=== PATIENT | female | born 1930 | race Caucasian/White ===

== ENCOUNTER 2021-10-22 13:46 | Observation (INO) | payer OTHER ==
[~2021-10-22] VITALS: Ht 162.6 cm; Wt 64.0 kg
[2021-10-22] MEDS ORDERED: HALOPERIDOL LACTATE 5 MG/ML VIAL IM ONE (14:15)
--- NOTE | 2021-10-22 14:15 | NUR ---
Placed in room 05 . Placed on traffic monitor specialist, blood pressure machine and pulse oximeter. To gown for exam. Side rails up.
[2021-10-22 14:18] VITALS: BP_SYST 134
--- NOTE | 2021-10-22 14:40 | NUR ---
Dr Hernandez evaluating patient at bedside
--- NOTE | 2021-10-22 14:45 | NUR ---
PT ARRIVED FROM HOME BY AMBULANCE C/O DEHYDRATION, ALTERED MENTAL STATUS, AND SCREAMING. PER FAMILY THE PATIENT STARTED TO BECOME MORE ALTERED AFTER STARTING TRAMADOL AT HOME. PER FAMILY SHE HAS HAD POOR PO INTAKE X2D. PT CURRENTLY ON HOSPICE AND DNR. HOSPICE WAS SUPPOSED TO SEE PATIENT AT HOME FOR IVF BUT FAMILY REFUSED AND WANTED PT TO COME TO HOSPITAL. PT INCONTINENT B/B.
[2021-10-22] MEDS ORDERED: NACL 0.9% 1,000 ML IV ONE (15:15)
--- NOTE | 2021-10-22 15:17 | NUR ---
Pt taken to CT via rmelony.
[2021-10-22 15:22] LABS: BASOPHILS % (AUTO) 0.3 % (0.0-2.0); EOSINOPHILS % (AUTO) 0.4 % (0.0-4.0); HEMOGLOBIN 15.4 g/dL (12.0-16.0); LYMPHOCYTES # (AUTO) 1.7 K/uL (1.0-5.5); LYMPHOCYTES % (AUTO) 20.2 % (20.5-51.5); MEAN CORPUSCULAR HEMOGLOBIN 31 pg (27-31); MEAN CORPUSCULAR HGB CONC 34 % (32-36); MEAN CORPUSCULAR VOLUME 91 fL (79.0-98.0); MONOCYTES # (AUTO) 0.8 K/uL (0.0-1.0); MONOCYTES % (AUTO) 9.1 % (1.7-9.3); NEUTROPHILS # (AUTO) 5.9 K/uL (1.8-7.7); PLATELET COUNT (AUTO) 199 K/uL (130-430); RED BLOOD CELL COUNT(AUTO) 5.03 MIL/uL (4.2-6.2); WHITE BLOOD COUNT (AUTO) 8.4 K/uL (4.8-10.8)
[2021-10-22 15:29] LABS: ANION GAP 14 (5-15); CALCIUM 9.3 mg/dL (8.4-11.0); CHLORIDE 98 mmol/L (98-107); CREATININE 1.36 mg/dL (0.55-1.30); GLUCOSE 140 mg/dL (70-99); POTASSIUM 3.4 mmol/L (3.5-5.1); SODIUM SERUM 138 mmol/L (136-145); UREA NITROGEN, BLOOD 16 mg/dL (8-21)
--- NOTE | 2021-10-22 15:30 | NUR ---
# 20 gauge angiocath placed to RIGHT AC. Use of asceptic technique. Opsite placed over site. Blood return noted. Blood for lab drawn from site. Flushed with 10 cc of normal saline. No evidence of infiltration noted. Patient tolerated well.
--- NOTE | 2021-10-22 15:33 | NUR ---
COVID SPECIMEN SENT TO LAB.
[2021-10-22 15:38] LABS: ALANINE AMINOTRANSFERASE 11 U/L (12-78); ALBUMIN 3.6 g/dL (3.4-4.8); ASPARTATE AMINOTRANSFERASE 19 U/L (10-37); TOTAL BILIRUBIN 0.9 mg/dL (0.0-1.0)
[2021-10-22 15:42] LABS: ALCOHOL, BLOOD < 3 mg/dL (<10)
--- NOTE | 2021-10-22 16:20 | NUR ---
Spoke to Khushi from [facility]. Verified pt was DNR. was only sent to ER for IV hydration only. when ready to come back hospice nurse will be at the home to help family. # [phone]
[2021-10-22] MEDS ORDERED: QUET50TA PO (17:45)
[2021-10-22] MEDS ORDERED: LORA-258 PO (17:47)
[2021-10-22] MEDS ORDERED: TRAM50TA2 PO (17:48)
[2021-10-22] MEDS ORDERED: SENN8.6T19 PO (17:49)
[2021-10-22 18:19] LABS: BILIRUBIN,URINE NEGATIVE (NEGATIVE); BLOOD, URINE 2+ (NEGATIVE); CLARITY/URINE CLEAR (CLEAR); COLOR,URINE YELLOW (YELLOW); GLUCOSE,URINE NEGATIVE (NEGATIVE); KETONES,URINE 1+ (NEGATIVE); LEUKOCYTE ESTERASE ,URINE NEGATIVE (NEGATIVE); NITRITE, URINE NEGATIVE (NEGATIVE); PROTEIN URINE 1+ (NEGATIVE); UROBILINOGEN,URINE 0.2 (0.2-1.0)
[2021-10-22 18:48] LABS: BARBITURATE, URINE NEGATIVE (NEG <=200); BENZODIAZEPINE, URINE POSITIVE (NEG <=150); CANNABINOID, URINE NEGATIVE (NEG <=50); COCAINE, URINE NEGATIVE (NEG <=150); METHAMPHETAMINES SCREEN,URINE NEGATIVE (NEG <=500); OPIATE, URINE NEGATIVE (NEG <=100); PHENCYCLIDINE SCREEN,URINE NEGATIVE (NEG <=25); UR TRICYCLIC ANTIDEPRESSANTS NEGATIVE (NEG <=300); URINE AMPHETAMINE NEGATIVE (NEG <=500); URINE METHADONE NEGATIVE (NEG <=200); URINE OXYCODONE SCREEN NEGATIVE (NEG <=100); URINE PROPOXYPHENE SCREEN NEGATIVE (NEG <=300)
[2021-10-22 18:54] LABS: BACTERIA,URINE FEW /HPF (None Seen); MUCUS,URINE 1+ /LPF (None Seen); RBC,URINE 0-3 /HPF (0-3); WBC,URINE 0-3 /HPF (0-3)
--- NOTE | 2021-10-22 19:10 | NUR ---
REPORT GIVEN TO TAM GARCIA.
--- NOTE | 2021-10-22 19:19 | NUR ---
Admit bed requested Patient will be admitted to care of Dr. SPENCE. Admitted to MED SURG unit. Diagnosis DEHYDRATION Inpatient (Yes or No) NO Observation (Yes or No) YES Orientation concerns or request close to nursing station (Yes or No) YES Covid Status NEGATIVE On vent or bipap NO Isolation requirements NO Needs a sitter NO From Home (Yes or if No enter name of facility) YES Requires Dialysis (Yes or No) NO MED REC DONE
--- NOTE | 2021-10-22 20:30 | NUR ---
Patient will be admitted to care of . Admitted to MEDSURG unit. Will go to room 119B . Belongings list completed. Complete and up to date summary report printed. SBAR report GIVEN TO JESSICA TURCIOS
--- NOTE | 2021-10-22 20:50 | NUR ---
ADMISSION NOTE Received patient from ER via gurney. Patient admitted with diagnosis of dehydration. Patient is awake, alert, oriented X 1. Patient oriented to hospital room, call light, toileting, pain management and safety-teach back done. Patient informed that their room number is 119B. Personal belongings checked and Belongings List documented. Call light within reach.
[2021-10-22 21:02] VITALS: BP_SYST 138
[2021-10-22] MEDS ORDERED: LORazepam 1 MG TABLET PO PRN (22:30)
[2021-10-22] MEDS: LORazepam 2 MG/ML VIAL IVP PRN (22:50)
[2021-10-22 22:59] VITALS: BP_SYST 149
--- NOTE | 2021-10-22 23:14 | NUR ---
THIS IS AN OBSERVATION NOTE FOR AN 89 YEAR OLD FEMALE UNDER THE CARE OF DOCTOR BEBE FOR ALTERED LEVEL OF CONSCIOUSNESS. SHE CAME FROM HOME AND IS CURRENTLY UNDER [facility]PICE SERVICE. MARTA GERONIMO RN
[2021-10-23] MEDS ORDERED: HALOPERIDOL LACTATE 5 MG/ML VIAL IM ONE (03:15)
--- NOTE | 2021-10-23 04:14 | NUR ---
PATIENT CONTINUES LAUGHING / CRYING UNCONTROLLABLY THROUGHOUT TIME AFTER INJECTION OF 1MG HALDOL. MARTA GERONIMO RN
[2021-10-23 08:00] VITALS: BP_SYST 154
[2021-10-23 08:05] VITALS: BP_SYST 154
[2021-10-23] MEDS ORDERED: D5/0.45 NS 1,000 ML IV SCH (12:15)
[2021-10-23 12:49] VITALS: BP_SYST 156
[2021-10-23] MEDS ORDERED: KCL 20 mEq in 100 mL (PREMIX) 100 ML IV ONE (13:00)
--- NOTE | 2021-10-23 13:14 | NUR ---
Flitch Hanger FOREST RANGER TECHNICIAN met with pt and pts. at bedside. Mr. Delatorre and his daughter stated a rep. from [facility] just left. Mr. Delatorre just signed paperwork stating [facility] Hospice services were revoked. They can resume once again once pt. has discharged and the family contacts [facility] so [facility] can meet with them once again to resume hospice services. FOREST RANGER TECHNICIAN asked the family if they had any questions. They stated they understood the process and did not have any questions. FOREST RANGER TECHNICIAN will remain available as needed.
--- NOTE | 2021-10-23 13:45 | NUR ---
Dietitian Recommendations * NPO * Consider ST swallow eval and/or alternative nutrition support if/when medically appropriate LP, RD Please refer to Nutrition Assessment for details. Addendum: 10/23/21 at [address] Amended: Links added.
[2021-10-23] MEDS: LORazepam 2 MG/ML VIAL IVP PRN (15:56)
--- NOTE | 2021-10-23 16:04 | NUR ---
SYSTEM ADMINISTRATOR PRIMO Solis met with family to clarify information needed related to reinstating Hospice Services. BIOSTATISTICS PROFESSOR also contacted [facility] Admissions who stated a packet would need to be sent for review to begin process. BIOSTATISTICS PROFESSOR faxed packet for review to [facility] . BIOSTATISTICS PROFESSOR updated patient's family, daughter Mackenzie Merchant and patient's Eloy Delatorre on process to again obtain hospice services with [facility]. BIOSTATISTICS PROFESSOR will continue to be available as needed
[2021-10-23 16:33] VITALS: BP_SYST 147
--- NOTE | 2021-10-23 18:29 | NUR ---
Called and spoke to Marcela newsome [facility] and obtained a confirmation for a 2100 cone picker tonight.
[2021-10-23 20:04] VITALS: BP_SYST 159
--- NOTE | 2021-10-29 16:24 | NUR ---
LATE ENTRY: IV ADMINISTRATION END TIME (Observation Patients ONLY): IV infusion of Dextrose Sodium Chloride started at 1249 and ended at 2300 on October 23, 2021.
--- NOTE | 2021-10-29 16:25 | NUR ---
LATE ENTRY: IV ADMINISTRATION END TIME (Observation Patients ONLY): IV infusion of Potassium Chloride started at 1407 and ended at 1437 on October 23, 2021.
== END 2021-10-23 23:00 | disposition hospice, home (50) ==
LOC: SED 13:46 → SMU 19:18 → INTOOBSV 19:18 → SMU 20:37
PROVIDERS: ADMIT Internal Medicine; ATTEND Internal Medicine
DX: E86.0 Dehydration (principal); Z20.822 Contact with and (suspected) exposure to COVID-19; F03.90 Unspecified dementia, unspecified severity, without behavioral disturbance, psychotic disturbance, mood disturbance, and anxiety; R10.9 Unspecified abdominal pain; Z79.899 Other long term (current) drug therapy
CPT/HCPCS: 96372 ×2; 96374; 80307; 80053; 81000; 85025; 84484; 36415; 93005; 71045; 70450; 76376; 99285; 87426; 96361; 96376; 74018; G0482; J1630 ×2; J2060 ×2; G0378 ×2; J3480